=== PATIENT | male | born 1985 | race Caucasian/White ===

== ENCOUNTER 2016-09-21 20:07 | Emergency (ER) | payer SELFPAY ==
[~2016-09-21] VITALS: Ht 162.6 cm; Wt 90.7 kg
[2016-09-21] MEDS ORDERED: SERT25TA PO (20:17)
[2016-09-21] MEDS ORDERED: LISI-556 PO (20:17)
--- NOTE | 2016-09-21 20:25 | Diagnostic Imaging Report ---
INDICATION: History of lawnmower accident to the right foot as a child. Microwave fell on the right foot. COMPARISON STUDIES: None. 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 No acute fractures are present. 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 Dictated by: Dictated on workstation # [id number]
--- NOTE | 2016-09-21 20:38 | ED Lower Extremity ---
General Chief Complaint: Lower Extremity Stated Complaint: R FOOT PAIN Nursing Triage Note: RIGHT FOOT PAIN. DROPPED MICROWAVE ON FOOT. Nursing Sepsis Screen: No Definite Risk Source: patient, family (parents), spouse History of Present Illness Time seen by provider: 20:23 Initial Comments 31-year-old male patient presents to the emergency department w/ complaints of dropping microwave onto the right foot. Now complains of increased pain. Location Injury Occurred: home Onset: just prior to arrival Pain/Injury Location: right foot Method of Injury: direct blow Modifying Factors: Improves With Immobilization, Worse With Movement Allergies and Home Medications Allergies Coded Allergies: No Known Drug Allergies (Unverified , 09/21/16) Home Medications Lisinopril 5 Mg Tablet, Unknown Dose PO DAILY, (Reported) Sertraline HCl 25 Mg Tablet, Unknown Dose PO, (Reported) Constitutional: no symptoms reported Musculoskeletal: see HPI, joint pain, joint swelling Skin: change in color (ecchymosis right foot) Psychiatric/Neurological: Denies Numbness, Denies Paresthesia, Denies Tingling , Denies Weakness All Other Systems Reviewed Negative Unless Noted: Yes (Negative excepted noted.) Past Dpofbkk-Levddf-Ftkwhs Hx Patient Social History Alcohol Use: Denies Use Recreational Drug Use: No Smoking Status: Never a Smoker 2nd Hand Smoke Exposure: No Recent Foreign Travel: No Contact w/Someone Who Travel: No Recent Infectious Disease Expo: No Recent Hopitalizations: No Immunizations Up To Date Tetanus Booster (TDap): Unknown Seasonal Allergies Seasonal Allergies: No Surgeries HX Surgeries: Yes Surgeries: Orthopedic Respiratory Hx Respiratory Disorders: No Cardiovascular Hx Cardiac Disorders: Yes Cardiac Disorders: Hypertension Neurological Hx Neurological Disorders: No Genitourinary Hx Genitourinary Disorders: No Gastrointestinal Hx Gastrointestinal Disorders: No Musculoskeletal Hx Musculoskeletal Disorders: Yes Endocrine Hx Endocrine Disorders: No HEENT HX ENT Disorders: No Reviewed Nursing Assessment Reviewed/Agree w Nursing PMH: Yes Family Medical History Significant Family History: No Pertinent Family Hx Physical Exam Vital Signs Vital Sign - Last 12Hours 09/21/16 20:17 Temp 97.7 Pulse 72 Resp 18 B/P (MAP) 150/87 Pulse Ox 97 O2 Delivery Room Air Capillary Refill : Less Than 3 Seconds General Appearance: WD/WN, no apparent distress Cardiovascular: normal peripheral pulses, no edema Legs: bilateral leg non-tender, bilateral leg normal inspection, bilateral leg normal range of motion, bilateral leg no evidence of injury Knees: bilateral knee non-tender, bilateral knee normal inspection, bilateral knee normal range of motion, bilateral knee no evidence of injury Ankles: bilateral ankle non-tender, bilateral ankle normal inspection, bilateral ankle normal range of motion, bilateral ankle no evidence of injury Feet: left foot non-tender, left foot normal inspection, left foot normal range of motion, left foot no evidence of injury, right foot ecchymosis (distal dorsal foot), right foot limited range of motion, right foot pain, right foot soft tissue tenderness, right foot swelling, right foot other (subungual hematoma right great toe.) Neurologic/Tendon: normal sensation, normal motor functions, normal tendon functions, responds to pain, no evidence tendon injury Neurologic/Psychiatric: no motor/sensory deficits, alert, normal mood/affect, oriented x 3 Skin: normal color, warm/dry, ecchymosis (. Ecchymosis right foot with subungual hematoma noted right great toe.) Nail Trepanation : Nail Trepanation Location: rt great toe Method of Drainage: nail cauterized Sterile Dressing Applied: Yes Progress approximately 1-2 ml of blood drained after cauterization. Patient tolerated the procedure well. 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 No acute fractures are present. 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 Dictated on workstation # [id number] Reviewed: Reviewed by Me (radiology report reviewed by me.) Departure Communication Progress Notes Diagnostic findings discussed with the patient. Patient continues to refuse pain medication at this time. Plan for discharge to home. Impression Impression: Primary Impression: Contusion of foot Qualified Codes: S90.31XA - Contusion of right foot, initial encounter Additional Impression: Subungual hematoma of great toe of right foot Qualified Codes: S90.211A - Contusion of right great toe with damage to nail, initial encounter Disposition: HOME, SELF-CARE Condition: Improved Departure-Patient Inst. Decision time for Depature: 20:37 Referrals: NO,LOCAL PHYSICIAN (PCP) Primary Care Physician Patient Instructions: Contusion (DC) Add. Discharge Instructions: All discharge instructions reviewed with patient and/or family. Voiced understanding. Tylenol Extra Strength [id number] as directed for pain. Ibuprofen 800 mg by mouth every 8 hours as needed for pain. Elevate the right foot on pillows. Ice pack for 20 minute intervals as needed for pain for 2-3 days, then heating pad or pack if needed. Shower with antibacterial soap. Follow-up with your family practitioner for recheck if no improvement in symptoms. Return to the emergency department for worsened symptoms or any other concerns. Work/School Note: [employer] ROLA TORRES September 21, 2016 20:38
[2016-09-21 21:03] VITALS: BP 150/87
== END 2016-09-21 21:02 | disposition home or self-care (01) ==
LOC: ER 20:11
DX: S90.31XA Contusion of right foot, initial encounter (principal); S90.211A Contusion of right great toe with damage to nail, initial encounter; W20.8XXA Other cause of strike by thrown, projected or falling object, initial encounter; Y92.009 Unspecified place in unspecified non-institutional (private) residence as the place of occurrence of the external cause; Y99.8 Other external cause status
CPT/HCPCS: 73630; 99283

== ENCOUNTER → 2018-06-16 | Outpatient (CLI) | payer OTHER ==
[~2018-06-16] MED LIST: LISI-556 PO; SERT25TA PO
[2018-06-16 15:48] VITALS: BP 116/81
--- NOTE | 2018-06-16 15:48 | Cardiology Stress Test Report ---
Stress Test Report Date of Procedure/Referring: Date of Procedure: Jun 16, 2018 PCP Shakira Campbell MD Admitting Physician No,Local Physician Baseline Heart Rate: 67 Baseline Blood Pressure: Blood Pressure Systolic: 116 Blood Pressure Diastolic: 81 Baseline EKG: Baseline EKG: normal sinus rhythm Summary/Conclusion: Summary: In summary, the patient started exercising with a baseline heart rate, blood pressure and EKG mentioned above Patient was able to exercise for a total of 9:09 minutes on Neil protocol, 10.5 METs Maximum heart rate 143 Maximum blood pressure 188/71 Stress EKG Minimal nondiagnostic changes Recovery EKG Return to baseline Conclusion: 1. Good exercise tolerance for a total of 9:09 minutes on Neil protocol, 10.5 METs, achieving 76 percent of maximum expected heart rate 2. Minimal nondiagnostic EKG changes with exercise returned to baseline during recovery 3. No arrhythmia was noted SHAKIRA CAMPBELL MD Jun 16, 2018 15:48
== END ==
LOC: CARD 12:37
PROVIDERS: ATTEND Internal Medicine Cardiovascular Disease
DX: I10 Essential (primary) hypertension (principal); R07.9 Chest pain, unspecified; R06.09 Other forms of dyspnea; I08.1 Rheumatic disorders of both mitral and tricuspid valves; Z82.49 Family history of ischemic heart disease and other diseases of the circulatory system
CPT/HCPCS: 93017; 93306

== ENCOUNTER 2020-04-25 09:39 | Outpatient (RCR) | payer OTHER | END 2020-04-25 17:00 | disposition home or self-care (01) | PROVIDERS: ATTEND Anesthesiology Pain Medicine | DX: M79.673 Pain in unspecified foot (principal); M25.539 Pain in unspecified wrist; H54.3 Unqualified visual loss, both eyes; F31.9 Bipolar disorder, unspecified ==